=== PATIENT | male | born 1955 | race Caucasian/White ===

== ENCOUNTER 2019-01-04 00:59 | Inpatient (IN) | payer MEDICAID ==
[~2019-01-04] VITALS: Ht 170.2 cm; Wt 78.5 kg
[2019-01-04] VITALS (8 sets, daily range): BP systolic 114–181; BP diastolic 70–116
[2019-01-04] MEDS ORDERED: MORPHINE SULFATE 4 MG/ML CPJ (NOT FOR IM USE) IV STA (01:25)
[2019-01-04] MEDS ORDERED: SODIUM CHLORIDE 0.9% 1,000 ML IV ONE (01:25)
[2019-01-04] MEDS ORDERED: ONDANSETRON HCL 4MG/2ML INJ IV STA (01:25)
[2019-01-04] MEDS ORDERED: LORAZEPAM 2MG/ML CPJ IV ONE ×2 (01:30→06:15)
[2019-01-04] MEDS ORDERED: LEVETIRACETAM 500MG PREMIX 100 ML IV ONE (01:30)
[2019-01-04 01:45] LABS: BASOPHILS % 0.2 % (0.0-2.0); EOSINOPHILS % 0.4 % (0.0-5.0); HEMATOCRIT. 39.6 % (42.0-52.0); HEMOGLOBIN. 13.6 g/dL (14.0-18.0); LYMPHOCYTES % 18.9 % (20.0-50.0); MEAN CORPUSCULAR HEMOGLOBIN 30.6 pg (28.0-32.0); MEAN CORPUSCULAR VOLUME 88.8 fL (80.0-94.0); MEAN PLATELET VOLUME 9.2 fl (7.4-10.4); MONOCYTES % 6.8 % (2.0-8.0); NEUTROPHILS % 73.7 % (40.0-76.0); PLATELET 219 x1000/uL (130-400); RED BLOOD CELL COUNT 4.45 mill/uL (4.7-6.1); RED CELL DISTRIBUTION WIDTH 13.1 % (11.6-14.6)
[2019-01-04] MEDS ORDERED: MIDAZOLAM HCL 2 MG/2 ML VIAL IV ONE (01:45)
[2019-01-04 01:52] LABS: CHLORIDE 104 mEq/L (98-107)
[2019-01-04 01:56] LABS: ETHANOL BLOOD < 10 mg/dL
[2019-01-04 02:02] LABS: BG BASE EXCESS 1.4 mmol/L (-2.0-2.0); BG CARBOXYHEMOGLOBIN 0.2 % (0.5-1.5); BG DEOXYHEMOGLOBIN 2.7 % (0.0-5.0); BG FRACTION INSPIRED OXYGEN 28; BG HCO3 ACT 26.5 mmol/L (22.0-26.0); BG METHEMOGLOBIN 0.3 % (0.0-1.5); BG OXYGEN SATURATION 97.3 % (92.0-98.5); BG OXYHEMOGLOBIN 96.8 % (94.0-97.0); BG PCO2 43.3 mmHg (35.0-45.0); BG PH 7.404 (7.350-7.450); BG PO2 100.4 mmHg (75.0-100.0); BG SAMPLE SITE RIGHT RADIAL; BG TOTAL HEMOGLOBIN 13.4 g/dL (12.0-18.0); BG VENT MODE NASAL CANNULA
[2019-01-04] MEDS ORDERED: ACETAMINOPHEN 650MG SUPP PR PRN (02:45)
[2019-01-04] MEDS ORDERED: ONDANSETRON HCL 4MG/2ML INJ IV PRN (02:45)
[2019-01-04] MEDS: DEXT 5%/0.45% NACL 1000ML 1,000 ML IV SCH ×2 (03:06→17:09)
[2019-01-04 03:13] LABS: CLARITY URINE CLEAR (CLEAR); COLOR URINE YELLOW (YELLOW); KETONES URINE TRACE (NEGATIVE); LEUKOCYTE ESTERASE URINE NEGATIVE (NEGATIVE); NITRITE URINE NEGATIVE (NEGATIVE); OCCULT BLOOD URINE TRACE (NEGATIVE); PROTEIN URINE 2+ (NEGATIVE); SPECIFIC GRAVITY URINE 1.025 (1.005-1.030); UROBILINOGEN URINE 0.2 E.U./dL (0.2-1.0)
[2019-01-04 03:59] LABS: *AMPHETAMINES SCREEN URINE NEGATIVE (NEGATIVE); *BARBITURATES SCREEN URINE NEGATIVE (NEGATIVE); *BENZODIAZEPINES SCREEN URINE PRESUMTIVE POSITIVE (NEGATIVE); *COCAINE SCREEN URINE NEGATIVE (NEGATIVE); METHADONE URINE SCREEN NEGATIVE (NEGATIVE); OPIATES URINE SCREEN PRESUMTIVE POSITIVE (NEGATIVE)
[2019-01-04 04:00] LABS: CANNABINOID URINE SCREEN NEGATIVE (NEGATIVE); PHENCYCLIDINE URINE SCREEN NEGATIVE (NEGATIVE)
[2019-01-04] MEDS: LORAZEPAM 2MG/ML CPJ IV PRN ×2 (06:23→08:47)
[2019-01-04 06:40] LABS: BG BASE EXCESS 1.1 mmol/L (-2.0-2.0); BG CARBOXYHEMOGLOBIN 0.1 % (0.5-1.5); BG DEOXYHEMOGLOBIN 2.2 % (0.0-5.0); BG FRACTION INSPIRED OXYGEN 28; BG HCO3 ACT 26.2 mmol/L (22.0-26.0); BG METHEMOGLOBIN 0.3 % (0.0-1.5); BG OXYGEN SATURATION 97.8 % (92.0-98.5); BG OXYHEMOGLOBIN 97.4 % (94.0-97.0); BG PCO2 43.4 mmHg (35.0-45.0); BG PH 7.398 (7.350-7.450); BG PO2 106.3 mmHg (75.0-100.0); BG SAMPLE SITE RIGHT RADIAL; BG TOTAL HEMOGLOBIN 13.5 g/dL (12.0-18.0); BG VENT MODE NASAL CANNULA
[2019-01-04] MEDS ORDERED: LEVETIRACETAM 500 MG in SODIUM CHLORIDE 0.9% 100 ML IV SCH (10:15)
[2019-01-04] MEDS ORDERED: LEVETIRACETAM 500MG in SODIUM CHLORIDE 0.9% 100ML IV NR (11:00)
[2019-01-04] MEDS: CEFEPIME 1,000 MG in DEXTROSE 5% WATER 50 ML IV SCH ×2 (11:01→23:22)
[2019-01-04] MEDS ORDERED: LISI-604 MT (15:55)
[2019-01-04] MEDS ORDERED: METF-414 MT (15:55)
[2019-01-04] MEDS: MULTIVITAMINS,THER W-MINERALS TABLET PO SCH (16:00)
[2019-01-04] MEDS: THIAMINE HCL 100MG TABLET PO SCH (16:00)
[2019-01-04] MEDS: FOLIC ACID 1MG TABLET PO SCH (16:00)
[2019-01-04 19:08] LABS: T4 FREE 1.08 ng/dL (0.76-1.46)
[2019-01-04] MEDS ORDERED: CLONIDINE 0.1MG TABLET PO PRN (19:30)
[2019-01-04 19:32] LABS: VITAMIN B12 SERUM 338 pg/mL (211-911)
[2019-01-04 19:33] LABS: FOLIC ACID (FOLATE) SERUM > 20.00 ng/mL (>5.38)
[2019-01-04] MEDS ORDERED: AMLODIPINE 10MG TABLET PO NR (20:00)
[2019-01-04] MEDS: LEVETIRACETAM 500MG in SODIUM CHLORIDE 0.9% 100ML IV SCH (20:23)
[2019-01-04] MEDS ORDERED: IRON SUCROSE COMPLEX 100 MG/5 ML ML IV SCH (20:30)
[2019-01-05] VITALS (12 sets, daily range): BP systolic 102–165; BP diastolic 55–92
[2019-01-05 06:05] LABS: CHLORIDE 105 mEq/L (98-107)
[2019-01-05 06:18] LABS: BASOPHILS % 0.3 % (0.0-2.0); HEMOGLOBIN. 12.2 g/dL (14.0-18.0); LYMPHOCYTES % 20.6 % (20.0-50.0); MEAN CORPUSCULAR VOLUME 89.4 fL (80.0-94.0); MEAN PLATELET VOLUME 10.1 fl (7.4-10.4); MONOCYTES % 8.4 % (2.0-8.0); NEUTROPHILS % 69.7 % (40.0-76.0); PLATELET 178 x1000/uL (130-400); RED BLOOD CELL COUNT 3.92 mill/uL (4.7-6.1); RED CELL DISTRIBUTION WIDTH 13.2 % (11.6-14.6)
[2019-01-05] MEDS ORDERED: POTASSIUM CHLORIDE 20MEQ TABLET SR PO NR (08:45)
[2019-01-05] MEDS: THIAMINE HCL 100MG TABLET PO SCH (09:00)
[2019-01-05] MEDS: LEVETIRACETAM 500MG in SODIUM CHLORIDE 0.9% 100ML IV SCH ×2 (09:00→20:59)
[2019-01-05] MEDS: MULTIVITAMINS,THER W-MINERALS TABLET PO SCH (09:01)
[2019-01-05] MEDS: FOLIC ACID 1MG TABLET PO SCH (09:01)
[2019-01-05] MEDS: AMLODIPINE 10MG TABLET PO SCH (09:06)
[2019-01-05] MEDS: DEXT 5%/0.45% NACL 1000ML 1,000 ML IV SCH (09:06)
[2019-01-05] MEDS: CEFEPIME 1,000 MG in DEXTROSE 5% WATER 50 ML IV SCH ×2 (10:22→23:08)
[2019-01-05] MEDS ORDERED: LOPERAMIDE HCL 2MG CAPSULE PO NR (15:15)
[2019-01-05] MEDS ORDERED: LOPERAMIDE HCL 2MG CAPSULE PO PRN (16:00)
[2019-01-05] MEDS: METFORMIN HCL 500MG TABLET PO SCH (17:29)
[2019-01-05] MEDS ORDERED: ENOXAPARIN 40MG/0.4ML SYR SUBCUT SCH (21:00)
[2019-01-06] VITALS (8 sets, daily range): BP systolic 113–161; BP diastolic 42–115
[2019-01-06] MEDS ORDERED: ACETAMINOPHEN 325MG TABLET PO PRN
[2019-01-06] MEDS: DEXT 5%/0.45% NACL 1000ML 1,000 ML IV SCH (01:27)
[2019-01-06 06:24] LABS: BASOPHILS % 0.4 % (0.0-2.0); EOSINOPHILS % 1.5 % (0.0-5.0); HEMOGLOBIN. 11.5 g/dL (14.0-18.0); LYMPHOCYTES % 26.5 % (20.0-50.0); MEAN CORPUSCULAR HEMOGLOBIN 30.9 pg (28.0-32.0); MEAN CORPUSCULAR VOLUME 88.7 fL (80.0-94.0); MONOCYTES % 8.2 % (2.0-8.0); NEUTROPHILS % 63.4 % (40.0-76.0); PLATELET 168 x1000/uL (130-400); RED BLOOD CELL COUNT 3.72 mill/uL (4.7-6.1); RED CELL DISTRIBUTION WIDTH 12.7 % (11.6-14.6)
[2019-01-06 06:27] LABS: CHLORIDE 104 mEq/L (98-107)
[2019-01-06] MEDS: METFORMIN HCL 500MG TABLET PO SCH (08:13)
[2019-01-06] MEDS: THIAMINE HCL 100MG TABLET PO SCH (08:14)
[2019-01-06] MEDS: FOLIC ACID 1MG TABLET PO SCH (08:14)
[2019-01-06] MEDS: MULTIVITAMINS,THER W-MINERALS TABLET PO SCH (08:14)
[2019-01-06] MEDS: LEVETIRACETAM 500MG in SODIUM CHLORIDE 0.9% 100ML IV SCH (08:14)
[2019-01-06] MEDS: AMLODIPINE 10MG TABLET PO SCH (08:19)
[2019-01-06] MEDS: CEFEPIME 1,000 MG in DEXTROSE 5% WATER 50 ML IV SCH (11:17)
== END 2019-01-06 17:30 | disposition home or self-care (01) | DRG 52 ==
LOC: ER 00:59 → EDBD 02:32 → 5EST 02:32 → EDBEDREQ 02:35 → EDBEDREQTM 02:35 → EDBEDREQSVC 02:35 → SUPCPDRO 02:43 → ENRESERV 06:53
PROVIDERS: ADMIT Hospitalist; ATTEND Hospitalist
DX: G93.41 Metabolic encephalopathy (principal); J69.0 Pneumonitis due to inhalation of food and vomit; E11.9 Type 2 diabetes mellitus without complications; I10 Essential (primary) hypertension; D72.829 Elevated white blood cell count, unspecified; Z79.84 Long term (current) use of oral hypoglycemic drugs; G40.409 Other generalized epilepsy and epileptic syndromes, not intractable, without status epilepticus; Z79.899 Other long term (current) drug therapy
CPT/HCPCS: 36415; 36600; 70551; 71045; 80185; 80305; 80307; 80320; 80329; 81003; 82140; 82375; 82607; 82746; 82805; 82962; 83036; 83605; 83735; 83930; 84439; 84443; 84481; 84484; 93005; 93970; 96365; 96375; 99291; J0692; J1650; J1953; J2060; J2250; J2270; J2405; J7030; J7050; J7060; G0480

== ENCOUNTER 2019-02-12 20:36 | Emergency (ER) | payer MEDICAID ==
[~2019-02-12] VITALS: Ht 172.7 cm; Wt 82.0 kg
[~2019-02-12 20:36] MED LIST: LISI-604 MT; METF-414 MT
[2019-02-12] MEDS ORDERED: ONDANSETRON HCL 4MG/2ML INJ IV STA (21:25)
[2019-02-12] MEDS ORDERED: SODIUM CHLORIDE 0.9% 1,000 ML IV ONE (21:25)
[2019-02-12 21:58] LABS: BASOPHILS % 0.4 % (0.0-2.0); EOSINOPHILS % 0.9 % (0.0-5.0); HEMATOCRIT. 36.7 % (42.0-52.0); HEMOGLOBIN. 12.7 g/dL (14.0-18.0); LYMPHOCYTES % 21.2 % (20.0-50.0); MEAN CORPUSCULAR HEMOGLOBIN 30.9 pg (28.0-32.0); MEAN CORPUSCULAR VOLUME 89.1 fL (80.0-94.0); MEAN PLATELET VOLUME 9.8 fl (7.4-10.4); MONOCYTES % 6.2 % (2.0-8.0); NEUTROPHILS % 71.3 % (40.0-76.0); PLATELET 141 x1000/uL (130-400); RED BLOOD CELL COUNT 4.12 mill/uL (4.7-6.1); RED CELL DISTRIBUTION WIDTH 13.4 % (11.6-14.6)
[2019-02-12 21:59] LABS: CLARITY URINE CLEAR (CLEAR); COLOR URINE YELLOW (YELLOW); KETONES URINE TRACE (NEGATIVE); LEUKOCYTE ESTERASE URINE NEGATIVE (NEGATIVE); NITRITE URINE NEGATIVE (NEGATIVE); OCCULT BLOOD URINE NEGATIVE (NEGATIVE); PROTEIN URINE 2+ (NEGATIVE); SPECIFIC GRAVITY URINE 1.024 (1.005-1.030); UROBILINOGEN URINE 0.2 E.U./dL (0.2-1.0)
[2019-02-12 22:15] LABS: CHLORIDE 103 mEq/L (98-107)
[2019-02-12 22:20] LABS: ETHANOL BLOOD < 10 mg/dL
[2019-02-12 22:46] LABS: *AMPHETAMINES SCREEN URINE NEGATIVE (NEGATIVE); *BARBITURATES SCREEN URINE NEGATIVE (NEGATIVE); *BENZODIAZEPINES SCREEN URINE NEGATIVE (NEGATIVE); *COCAINE SCREEN URINE NEGATIVE (NEGATIVE); CANNABINOID URINE SCREEN NEGATIVE (NEGATIVE); METHADONE URINE SCREEN NEGATIVE (NEGATIVE); OPIATES URINE SCREEN NEGATIVE (NEGATIVE); PHENCYCLIDINE URINE SCREEN NEGATIVE (NEGATIVE)
[2019-02-13 02:50] VITALS: BP 122/56
== END 2019-02-13 02:52 | disposition home or self-care (01) ==
LOC: ER 20:36
DX: R51 Headache (principal); R42 Dizziness and giddiness; R55 Syncope and collapse; R11.2 Nausea with vomiting, unspecified; I45.2 Bifascicular block; I10 Essential (primary) hypertension; Z79.899 Other long term (current) drug therapy
CPT/HCPCS: 36415; 70450; 71045; 80053; 80305; 80320; 81003; 82962; 83880; 84484; 85025; 93005; 96361; 96374; 99284; J2405; J7030; G0480